=== PATIENT | male | born 1985 | race African-American/Black ===

== ENCOUNTER 2024-02-10 08:59 | Emergency (ER) | payer MEDICAID, OTHER | END 2024-02-10 10:17 | disposition left against medical advice (07) | LOC: ER 08:59 | DX: R42 Dizziness and giddiness (principal); E11.9 Type 2 diabetes mellitus without complications; E78.5 Hyperlipidemia, unspecified; I10 Essential (primary) hypertension; F17.210 Nicotine dependence, cigarettes, uncomplicated; F12.10 Cannabis abuse, uncomplicated ==